=== PATIENT | female | born 1960 | race Caucasian/White ===

== ENCOUNTER → 2021-06-26 | Outpatient (CLI) | payer BC ==
--- NOTE | 2021-06-26 17:39 | REPVR ---
PROCEDURE INFORMATION: Exam: CT Maxillofacial Without Contrast, Sinus Exam date and time: 06/26/2021 5:17 PM Age: 60 years old Clinical indication: Sinusitis; Chronic TECHNIQUE: Imaging protocol: CT Maxillofacial without contrast. Focus on the sinuses. Radiation optimization: All CT scans at this facility use at least one of these dose optimization techniques: automated exposure control; mA and/or kV adjustment per patient size (includes targeted exams where dose is matched to clinical indication); or iterative reconstruction. COMPARISON: No relevant prior studies available. FINDINGS: Ostiomeatal complexes are bilaterally patent. Paranasal sinuses show no mucosal thickening, fluid level or mass. No bony sclerosis present to indicate chronic sinusitis. Nasal septum shows no marked spurring. Leftward nasal septal deviation No nura bullosa deformity. No soft tissue asymmetry of the posterior nasopharynx. No osseous destructive process. IMPRESSION: Unremarkable CT of the paranasal sinuses. No evidence of inflammatory sinusitis. Electronically signed by: Kane Cardona On 06/26/2021 17:39:12 PM
== END ==
LOC: M RAD 17:09
PROVIDERS: ATTEND Otolaryngology
DX: J32.0 Chronic maxillary sinusitis (principal)

== ENCOUNTER 2022-08-26 09:37 | Day surgery (SDC) | payer BC ==
[~2022-08-26] VITALS: Ht 167.6 cm; Wt 79.4 kg
[~2022-08-26 09:37] MED LIST: ATIV1TAB10 PO; BSS IRR 500ML/OMIDRIA 4ML IRR BAG (OR ONLY) As Ordered ONE; CYCLOPENTOLATE 1% OPHTH SOLN 2ML BTL OD SCH; FAMO20TA5 PO; FLUV20CA2 PO; HYDR-4571 PO; IBUP-1022 PO; LIDOCAINE 1% 1ML PF SYRINGE (OR EYE CASES) As Ordered ONE; LISI5TAB11 PO; PHENYLEPHRINE 2.5% OPHTH SOL 2ML OD SCH; PROPARACAINE 0.5% OPHTH SOL 15ML OD ONE; PSEU120T3 PO; TOBRADEX OPHTH OINT 3.5 GM As Ordered ONE; TROPICAMIDE 1% OPHTH SOLN 15ML OD SCH; VITA200016 PO; ZYRT10TA12 PO
[2022-08-26] MEDS ORDERED: TOBRAMYCIN 0.3% OPHTH SOLN 5ML OD SCH (10:55)
[2022-08-26] MEDS ORDERED: MIDAZOLAM INJ 2MG/2ML VIAL As Ordered ONE (12:32)
[2022-08-26 13:18] VITALS: BP 167/84
== END 2022-08-26 13:30 | disposition home or self-care (01) ==
LOC: M SDC 09:37
PROVIDERS: ATTEND Ophthalmology
DX: H25.11 Age-related nuclear cataract, right eye (principal); I10 Essential (primary) hypertension; E78.5 Hyperlipidemia, unspecified; K21.9 Gastro-esophageal reflux disease without esophagitis; Z86.718 Personal history of other venous thrombosis and embolism; F17.210 Nicotine dependence, cigarettes, uncomplicated; M79.7 Fibromyalgia; F41.9 Anxiety disorder, unspecified; Z88.0 Allergy status to penicillin; Z88.1 Allergy status to other antibiotic agents; Z88.8 Allergy status to other drugs, medicaments and biological substances; Z79.899 Other long term (current) drug therapy
CPT/HCPCS: 66984; J1097

== ENCOUNTER 2022-11-21 11:10 | Day surgery (SDC) | payer BC ==
[~2022-11-21] VITALS: Ht 167.6 cm; Wt 77.6 kg
[~2022-11-21 11:10] MED LIST changes: -BSS IRR 500ML/OMIDRIA 4ML IRR BAG (OR ONLY) As Ordered ONE; -CYCLOPENTOLATE 1% OPHTH SOLN 2ML BTL OD SCH; -LIDOCAINE 1% 1ML PF SYRINGE (OR EYE CASES) As Ordered ONE; +LIDOCAINE 2% 100MG/5ML SDV (FOR ANES.) As Ordered ONE; +LINZ145C PO; +NS 1,000 ML IV ONE; -PHENYLEPHRINE 2.5% OPHTH SOL 2ML OD SCH; -PROPARACAINE 0.5% OPHTH SOL 15ML OD ONE; -TOBRADEX OPHTH OINT 3.5 GM As Ordered ONE; -TROPICAMIDE 1% OPHTH SOLN 15ML OD SCH; +fentaNYL 100 MCG/2 ML INJECTION As Ordered ONE; +propofoL 200 MG/20 ML VIAL As Ordered ONE
[2022-11-21 15:15] VITALS: BP 185/86
== END 2022-11-21 15:15 | disposition home or self-care (01) ==
LOC: M OPP 11:10
PROVIDERS: ATTEND Internal Medicine Gastroenterology
DX: Z12.11 Encounter for screening for malignant neoplasm of colon (principal); Z86.010 Personal history of colon polyps; D12.3 Benign neoplasm of transverse colon; K63.5 Polyp of colon; Q43.8 Other specified congenital malformations of intestine; K44.9 Diaphragmatic hernia without obstruction or gangrene; M79.7 Fibromyalgia; F17.200 Nicotine dependence, unspecified, uncomplicated; Z79.02 Long term (current) use of antithrombotics/antiplatelets; Z79.1 Long term (current) use of non-steroidal anti-inflammatories (NSAID); Z79.891 Long term (current) use of opiate analgesic; Z79.899 Other long term (current) drug therapy; Z88.0 Allergy status to penicillin; Z88.1 Allergy status to other antibiotic agents; Z88.2 Allergy status to sulfonamides; Z91.040 Latex allergy status; Z86.718 Personal history of other venous thrombosis and embolism; Z80.1 Family history of malignant neoplasm of trachea, bronchus and lung
CPT/HCPCS: 43235; 45385; 88305; J3010

== ENCOUNTER 2025-07-20 07:15 | Day surgery (SDC) | payer OTHER ==
[~2025-07-20] VITALS: Ht 167.6 cm; Wt 71.2 kg
[~2025-07-20 07:15] MED LIST changes: -IBUP-1022 PO; +IBUP600T42 PO; -LIDOCAINE 2% 100MG/5ML SDV (FOR ANES.) As Ordered ONE; +LISI20TA33 PO; +MIDAZOLAM INJ 2 MG/2 ML VIAL As Ordered ONE; -NS 1,000 ML IV ONE; +PHENYLEPHRINE 10% OPHTH SOL 5ML OS PRN; +UNRESOLVED CLARIFICATION ENTRY XX SCH; -fentaNYL 100 MCG/2 ML INJECTION As Ordered ONE; -propofoL 200 MG/20 ML VIAL As Ordered ONE
[2025-07-20] MEDS: TROPICAMIDE 1% OPHTH SOLN 15ML OS SCH (08:09)
[2025-07-20] MEDS: CYCLOPENTOLATE 1% OPHTH SOLN 2 ML BTL OS SCH (08:10)
[2025-07-20] MEDS: PHENYLEPHRINE 2.5% OPHTH SOL 2ML OS SCH (08:11)
[2025-07-20] MEDS: LIDOCAINE 3.5% 1 ML OPHTH TOPICAL GEL OU ONE (08:15)
[2025-07-20] MEDS: LIDOCAINE 1% SDV 5 ML VIAL As Ordered ONE (09:36)
[2025-07-20 09:48] VITALS: BP 144/73; TEMP 96.9; O2SAT 100
[2025-07-20] MEDS: TOBRAMYCIN 0.3% OPHTH SOLN 5ML OS ONE (10:36)
== END 2025-07-20 10:01 | disposition home or self-care (01) ==
LOC: M SDC 07:15
PROVIDERS: ATTEND Ophthalmology
DX: H25.12 Age-related nuclear cataract, left eye (principal); I10 Essential (primary) hypertension; E78.00 Pure hypercholesterolemia, unspecified; G62.9 Polyneuropathy, unspecified; K21.9 Gastro-esophageal reflux disease without esophagitis; Z79.899 Other long term (current) drug therapy; G43.909 Migraine, unspecified, not intractable, without status migrainosus; Z91.040 Latex allergy status; Z90.710 Acquired absence of both cervix and uterus; Z88.1 Allergy status to other antibiotic agents; Z88.0 Allergy status to penicillin; Z88.8 Allergy status to other drugs, medicaments and biological substances; Z88.2 Allergy status to sulfonamides
CPT/HCPCS: 66984; J2250; J3010; V2632